=== PATIENT | female | born 1935 | race Caucasian/White ===

== ENCOUNTER → 2021-05-01 | Outpatient (CLI) | payer MEDICARE, BC ==
[~2021-05-01] VITALS: Ht 170.2 cm; Wt 73.1 kg
[~2021-05-01] MED LIST: ALBUTEROL0.83 MG/ML IH; ARICEPT 5MG PO; ATROVENT I0.2 MG/1 M IH; CARAFATE 1GM1 G PO; FLONASE SENSIM9.9 ML NS; LEVAQUIN 5500 MG/101 IV; MELATONIN3 M1 PO; PROTONIX 40MG T40 MG PO; PULMICORT0.5 MG/2 M IH; SYNTHROID0.05 MG/TA PO; TYLENOL 325MG325 MG PO
[2021-05-01 14:50] VITALS: BP 131/78; PULSE 84
[2021-05-01 15:26] LABS: PLEURAL FLUID RBC 1000 /mm3 (0-0); PLEURAL FLUID WBC 503 /mm3
[2021-05-01 15:36] LABS: PLEURAL FLUID APPEARANCE CLEAR; PLEURAL FLUID COLOR YELLOW
== END ==
LOC: COL.RAD 13:30
PROVIDERS: Family Medicine
DX: J90 Pleural effusion, not elsewhere classified (principal)
CPT/HCPCS: 19804